=== PATIENT | female | born 1940 | race Caucasian/White ===

== ENCOUNTER 2024-04-26 09:25 | Day surgery (SDC) | payer MEDICARE, SELFPAY ==
[2024-04-20 08:03] VITALS: BMI 25.9
[2024-04-20 08:04] VITALS: BMI 25.9
--- NOTE | 2024-04-22 13:15 | P.CONAN_ITS ---
Documented by User: Ness Bashir NP 04/22/24 13:15 HPI - Anesthesia Eval Consult details Narrative: 83yo F for Right Cataract Extraction IOL Insertion No previous cataract on record PMFSH Past Medical History Medical History HTN (hypertension) Hearing loss Cataract Arthritis Surgical History Surgical History History of parotidectomy Hx of tonsillectomy Hx of appendectomy Social History Social History Are you a primary residential care facility manager to a significant other at home: No Patient Tobacco Use Status: Never used Tobacco Use of substances other than those prescribed or required for medical reasons: No Advance Directives: No Advance Directives Information Provided: Yes Advance Directives on File: No Recently lost weight without trying: No Eating poorly because of decreased appetite: No Patient : No : No Meds Allergies Allergy/AdvReac Type Severity Reaction Status Date / Time ciprofloxacin Allergy Severe Anaphylaxis Verified 04/26/24 10:12 levofloxacin Allergy Severe Anaphylaxis Verified 04/26/24 10:12 Home Medications ?Medication ?Instructions ?Recorded ?Confirmed ?Last Taken ?Type amlodipine 2.5 mg tablet 2.5 mg PO DAILY 04/20/24 04/20/24 04/26/24 History ascorbate calcium-bioflavonoid 1 tab PO DAILY 04/20/24 04/20/24 Unknown History 1,000 mg-200 mg tablet (Janette-C with Bioflavonoids) atorvastatin 40 mg tablet 40 mg PO DAILY 04/20/24 04/20/24 04/26/24 History cholecalciferol (vitamin D3) 250 250 mcg PO DAILY 04/20/24 04/20/24 Unknown History mcg (10,000 unit) tablet clotrimazole-betamethasone 1 1 appl topical DAILY 04/20/24 04/20/24 Unknown History %-0.05 % topical cream coQ10 (ubiquinol) 100 mg capsule 100 mg PO DAILY 04/20/24 04/20/24 Unknown History (CoQmax Ubiquinol) collagen (bovine) 100 % topical ea topical 04/20/24 Unknown History powder in packet estradiol 0.01% (0.1 mg/gram) vaginal 04/20/24 Unknown History vaginal cream glucosamine HCl 1,000 1 tab PO DAILY 04/20/24 04/20/24 Unknown History mg-hyaluronic acid 1.65 mg tablet losartan 100 mg tablet 100 mg PO DAILY 04/20/24 04/26/24 04/25/24 History meloxicam 7.5 mg tablet 7.5 mg PO DAILY 04/20/24 04/20/24 Unknown History lgrfqkxl-kag-jmwwf ac 400 1 tab PO DAILY 04/20/24 04/20/24 Unknown History mcg-calcium carb 500 mg-vit K1 20 mcg tablet (Women's 50 Plus Daily Formula) vitamin D3 1,250 mcg (50,000 1 cap PO DAILY 04/20/24 04/20/24 Unknown History unit)-vitamin K2 200 mcg capsule Exam Height,Weight and Vital Signs: Height 5 ft 3 in Weight 66.224 kg Assessment and Plan Assessment Anesthesia Assessment: Chart Reviewed Documented by User: Lavonne Trejo MD 04/26/24 10:50 PMFSH Past Medical History Medical History HTN (hypertension) Hearing loss Cataract Arthritis Functional capacity: wheelchair bound Surgical History Surgical History History of parotidectomy Hx of tonsillectomy Hx of appendectomy History of Problems with Anesthesia: No Social History Social History Are you a primary residential care facility manager to a significant other at home: No Patient Tobacco Use Status: Never used Tobacco Use of substances other than those prescribed or required for medical reasons: No Advance Directives: No Advance Directives Information Provided: Yes Advance Directives on File: No Recently lost weight without trying: No Eating poorly because of decreased appetite: No Patient : No : No Meds Allergies Allergy/AdvReac Type Severity Reaction Status Date / Time ciprofloxacin Allergy Severe Anaphylaxis Verified 04/26/24 10:12 levofloxacin Allergy Severe Anaphylaxis Verified 04/26/24 10:12 Home Medications ?Medication ?Instructions ?Recorded ?Confirmed ?Last Taken ?Type amlodipine 2.5 mg tablet 2.5 mg PO DAILY 04/20/24 04/20/24 04/26/24 History ascorbate calcium-bioflavonoid 1 tab PO DAILY 04/20/24 04/20/24 Unknown History 1,000 mg-200 mg tablet (Janette-C with Bioflavonoids) atorvastatin 40 mg tablet 40 mg PO DAILY 04/20/24 04/20/24 04/26/24 History cholecalciferol (vitamin D3) 250 250 mcg PO DAILY 04/20/24 04/20/24 Unknown History mcg (10,000 unit) tablet clotrimazole-betamethasone 1 1 appl topical DAILY 04/20/24 04/20/24 Unknown History %-0.05 % topical cream coQ10 (ubiquinol) 100 mg capsule 100 mg PO DAILY 04/20/24 04/20/24 Unknown History (CoQmax Ubiquinol) collagen (bovine) 100 % topical ea topical 04/20/24 Unknown History powder in packet estradiol 0.01% (0.1 mg/gram) vaginal 04/20/24 Unknown History vaginal cream glucosamine HCl 1,000 1 tab PO DAILY 04/20/24 04/20/24 Unknown History mg-hyaluronic acid 1.65 mg tablet losartan 100 mg tablet 100 mg PO DAILY 04/20/24 04/26/24 04/25/24 History meloxicam 7.5 mg tablet 7.5 mg PO DAILY 04/20/24 04/20/24 Unknown History jhbjuvgy-yjj-yapkc ac 400 1 tab PO DAILY 04/20/24 04/20/24 Unknown History mcg-calcium carb 500 mg-vit K1 20 mcg tablet (Women's 50 Plus Daily Formula) vitamin D3 1,250 mcg (50,000 1 cap PO DAILY 04/20/24 04/20/24 Unknown History unit)-vitamin K2 200 mcg capsule Exam Airway Mallampati Class: II TM Dist: >3cm Neck ROM: Full Loose/Missing/Broken Teeth: No Heart: RRR Lungs: CTA Assessment and Plan Assessment Anesthesia Assessment: Anesthesia Plan Discussed Final Anesthetic Review History of Problems with Anesthesia: No NPO: Yes ASA Class: II Final Preanesthetic Review: Meds/Allgs Chart Reviewed, Consent Obtained/Reviewed and Anes Risks/Benef Reviewed Patient Risk: Low Procedure Risk: Low Anesthetic Plan Anesthetic Plan: MAC: Disposition: Standard PACU
--- OUTSIDE RECORDS SUMMARY | 2024-04-26 10:03 | XMS_ITS ---
Author Organization [facility] Address [address] [place] [address] Care Team Providers Care Sql Ssrs Ssis Developer Name Role Phone BESSIE MENDOZA Primary Care Provider Unavail able Rebecca Fowler Unavailable [phone] Allergies Allergen (clinical drug ingredient) Drug/Non Drug Allergy documented on EMR Reaction Allergy Type Onset Date Status ciprofloxacin Cipro Unknown Drug Allergy Act terrie Levaquin Swelling Throat & Face Drug Allergy Active Medicinal quinolone and acting as antibacterial agent (FN) Quinolones Unknown Drug Allergy Active Results Component Value Reference Range Notes Urinalysis Reviewed date:09/26/2023 03:49:02 PM Interpretation: Performing Lab: Notes/Report: NITRITE Neg PH 5.0 PROTEIN Trace S.G 1.015 WBC Trace GLUCOSE Neg KETONES Neg UROBILINOGEN Neg BILIRUBIN Neg BLOOD Trace Urinalysis, Complete-[id number] Reviewed date:09/29/2023 08:40:36 AM Interpretation: Performing Lab:[facility], [address] [place] [address], [place], Phone - [phone], Director - Anna Notes/Report: Specific [place] 1.018 1.005-1.030 pH 5.5 5.0-7.5 Urine-Color Yellow Yellow Appearance Clear Clear WBC Esterase Negative Negative Protein Negative Negative/Trace Glucose Negative Negative Ketones Negative Negative Occult Blood Negative Negative Bilirubin Negative Negative Urobilinogen,Semi-Qn 0.2 0.2-1.0 mg/dL Nitrite, Urine Negative Negative Microscopic Examination Micr oscopic follows if indicated. Microscopic Examination See below: Micr oscopic was indicated and was performed. WBC None seen 0 - 5 /hpf RBC 0-2 0 - 2 /hpf Epithelial Cells (non renal) None seen 0 - 10 /hpf Casts None seen None seen /lpf Bacteria None seen None seen/Few Urine Culture, Routine-[id number] Reviewed date:09/29/2023 09:09:18 AM Interpretation: Performing Lab:[facility], [address] [place] [address], Phone - [phone], Director - Anna Notes/Report: Urine Culture, Routine Final report Result 1 No growth PDF Report Reviewed date:09/29/2023 08:39:20 AM Interpretation: Performing Lab:[facility], [address], [place], Phone - [phone], Director - Anna Notes/Report: REASON FOR VISIT URINARY ISSUE W/ABD PAIN Medications Medication SIG (Take, Route, Frequency, Duration) Notes Start Date End Date Status Collagen Active Ubiquinol Active CoQ10 50 MG as directed Orally Active Chondroitin Sulfate Active amLODIPine Besylate 2.5 MG 1 tablet Oral ly Once a day for 30 day(s) 11/07/2022 Active Clotrimazole-Betamethasone 1-0.05 % 1 application to affected area Externally Twice a day for 14 days 11/07/2022 Active Meloxicam 7.5 MG 1 tablet Orally Once a day for 30 day(s) Active Citracal/Vitamin D 1200 mg 1 tablet Orally Daily Active Losartan Potassium 100 MG 1 tablet Orall y Once a day Active Janette-C 500-550 MG Orally A ctive Vitamin D3 25 MCG (1000 UT) 1 tablet Ora lly Once a day for 30 day(s) Active Atorvastatin Calcium 40 MG 1 tablet Oral ly Once a day Active Glucosamine 1500 Complex Active Social History Alcohol Screen (Audit-C) Question Answer Notes Did you have a drink contain ing alcohol in the past year? Yes How often did you have a dri nk containing alcohol in the past year? 2 to 4 times a month (2 points) How many drinks did you have on a typical day when you were drinking in the past year? 1 or 2 drinks (0 point) Points 2 Tobacco use other than smoking: Question Answer Notes Are you an other tobacco user? No Vital Signs Temperature 97.4 degrees Fahrenheit 09/26/19 24 Blood pressure systolic 134 mm Hg 09/26/19 24 Blood pressure diastolic 78 mm Hg 024 Height 61.75 in 09/26/2023 Weight 142 lbs 09/26/2023 BMI 26.18 kg/m2 09/26/2023 Encounters Encounter Location Date Provider Diagnosis [facility] [address] [place] [address] 09/26/2023 Rebecca Fowler Frequency of micturition R35.0 ; Unspecified abdominal pain R10.9 ; Abdominal distension (gaseous) R14.0 and Acute candidiasis of vulva and vagina B37.31 Assessments Encounter Date Diagnosis (ICD Code) Assessment Notes Treatment Notes Treatment Clinical Notes Section Notes 09/26/2023 Frequency of micturition (ICD-10 - R35.0) OFFICIAL UA AND URINE C/S 09/26/2023 Unspecified abdominal pain (ICD-10 - R10.9) REASSURED PAT OF NORMAL WIND 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 ULTRASOUND OF THE ABDOMEN AND PELVIS WERE ORDERED. IF NORMAL AND PAINS CONTINUE, REFER TO PCP FOR POSSIBLE CT SCAN OF THE ABDOMEN. 09/26/2023 Abdominal distension (gaseous) (ICD-10 - R14.0) PELVIC AND ABDOMINAL SCANS WERE ORDERED. 09/26/2023 Acute candidiasis of vulva and vagina (ICD-10 - B37.31) DISCUSSED FINDINGS AND PROBABLE VULVAR YEAST. CONTINUE APPLYING LOTRISONE CREAM THAT HAD PREVIOUSLY BEEN PRESCRIBED. LOOSE WHITE COTTON UNDERWEAR. Plan Of Treatment Treatment Notes Assessment Notes Frequency of micturition OFFICIAL UA AND URINE C/S Unspecified abdominal pain REASSURED PAT OF NORMAL WIND 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 ULTRASOUND OF THE ABDOMEN AND PELVIS WERE ORDERED. IF NORMAL AND PAINS CONTINUE, REFER TO PCP FOR POSSIBLE CT SCAN OF THE ABDOMEN. Abdominal distension (gaseous) PELVIC AN D ABDOMINAL SCANS WERE ORDERED. Acute candidiasis of vulva and vagina DISCUSSED FINDINGS AND PROBABLE VULVAR YEAST. CONTINUE APPLYING LOTRISONE CREAM THAT HAD PREVIOUSLY BEEN PRESCRIBED. LOOSE WHITE COTTON UNDERWEAR. Pending Test Test Name Order Date Ultrasound : Abdomen 09/26/2023 Next Appt Details Follow Up: prn, Reason: Provider Name:Rebecca Pennington [email or web address], 11/11/2024 09:40:00 AM, [address], [address], [place], [address], Progress Notes * RANULFO ANNEOB:1940 (83 yo F)Acc No.[id number]:09/26/2023 PROGRESS NOTES Patient:?JON ANNEN Appointment Provider:?Rebecca dyson M.D. :1940???Age:83 Y???Sex:Female D ate:09/26/2023 Address:[address] [place], [place] [id number] Pcp:BESSIE MENDOZA Subjective: * Chief Complaints: * ???URINARY ISSUE W/ABD PAIN * HPI: ???New/Follow-up Patient Consult:? PAT IS C/O URINARY FREQUENCY BUT NO DYSURIA OR URGENCY.? SHE HAS ALSO NOTED TWINGES OF PAIN ALONG THE ENTIRE ABDOMEN THAT OCCUR ABOUT 5 TIMES PER DAY OF A WEEKS DURATION.? PAINS LAST A FEW SECONDS.? SHE FEELS BLOATED.? SHE HAS NO BOWEL COMPLAINTS. SHE ALSO C/O VULVAR ITCHING AND HAS STARTED TO USE LOTRISONE CREAM THAT SHE HAD BEEN PREVIOUSLY PRESCRIBED. SHE AND HER WERE AT THE [place] AND [place] RECENTLY AND ADMITS TO WEARING TIGHTER CLOTHING WHILE TRAVELING. * ROS:?general:?no?chest pain.?no?palpitations.?no?headache.?no?cough.?no?shortness of breath.?no?fever.?no?unexplained weight loss.?no?nausea/vomiting.?no?change in bowel movements.?no blood in stool.?genitourinary complaints?yes,?URINARY FREQUENCY.?no?skin complaints.? * Medical History:? 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 * OB History:?Total pregnancies?2.?Total living children?2.?NVD?2.? * Surgical History:?Appendecto my D&C Tonsillectomy Colonoscopy * Hospitalization/Major Diagno stic Procedure:?2 Vaginal Deliveries See Surgical Hx * Family History:?Mother: dece ased 89 yrs, Kidney Failure.?Father: 60 yrs, coronary artery disease.? Maternal Cousin: Lung Cancer, Smoker. * Social History:?Tobacco Use:?Tobacco Use/Smoking?Are you a: nonsmoker.?Tobacco use other than smoking?Are you an other tobacco user??No ???Sexual History:?Sexual History?Had sex in the past 12 months (vaginal, oral, or anal)?: Yes, with: Men only, Use protection?: No, Have you ever had a Sexually transmitted disease?: No.?Details of Sexual History?Are you sexually active??Yes ???Drugs/Alcohol:?Drugs?Have you used drugs other than those for medical reasons in the past 12 months??No ?Alcohol Screen (Audit-C)?Did you have a drink containing alcohol in the past year??Yes ?How often did you have a drink containing alcohol in the past year??2 to 4 times a month (2 points) ?How many drinks did you have on a typical day when you were drinking in the past year??1 or 2 drinks (0 point) ?Points?2 ???Miscellaneous:?Caffeine: yes, frequency:, 1 cup per day of coffee. ?Children: yes. ?Exercise: yes, walking. ?Home smoke detector use: yes. ?Living with: spouse. ?Marital status: . ?Natural support system: yes. ?Occupation: Retired. ?Sexual abuse: no. ?Sexually active: yes, Not Frequently. ?Travel outside of the [place]: yes, [place]. ?Verbal abuse: no. * Medications:?TakingCollagen Ubiquinol CoQ10 50 MG Capsule as directed Orally Chondroitin Sulfate Glucosamine 1500 Complex Vitamin D3 25 MCG (1000 UT) Tablet 1 tablet Orally Once a day Atorvastatin Calcium 40 MG Tablet 1 tablet Orally Once a day Citracal/Vitamin D 1200 mg Tablet 1 tablet Orally Daily Losartan Potassium 100 MG Tablet 1 tablet Orally Once a day Janette-C 500-550 MG Tablet Orally amLODIPine Besylate 2.5 MG Tablet 1 tablet Orally Once a day Clotrimazole-Betamethasone 1- 0.05 % Cream 1 application to affected area Externally Twice a day Meloxicam 7.5 MG Tablet 1 tablet Orally Once a day Taking Collagen Taking Ubiquinol Taking CoQ10 50 MG Capsule as directed Orally Taking Chondroitin Sulfate Taking Glucosamine 1500 Complex Taking Vitamin D3 25 MCG (1000 UT) Tablet 1 tablet Orally Once a day Taking Atorvastatin Calcium 40 MG Tablet 1 tablet Orally Once a day Taking Citracal/Vitamin D 1200 mg Tablet 1 tablet Orally Daily Taking Losartan Potassium 100 MG Tablet 1 tablet Orally Once a day Taking Janette-C 500-550 MG Tablet Orally Taking amLODIPine Besylate 2.5 MG Tablet 1 tablet Orally Once a day Taking Clotrimazole-Betamethasone 1-0.05 % Cream 1 application to affected area Externally Twice a day Taking Meloxicam 7.5 MG Tablet 1 tablet Orally Once a day DiscontinuedYuvafem 10 MCG Tablet 1 tablet Vaginal THRICE A WEEK Lotrisone 1-0.05 % Cream 1 application to affected area Externally Twice a day PRN Clotrimazole-Betamethasone 1-0.05 % Cream 1 application Externally Twice a day Medication List reviewed and reconciled with the patientDiscontinued Yuvafem 10 MCG Tablet 1 tablet Vaginal THRICE A WEEK Discontinued Lotrisone 1-0.05 % Cream 1 application to affected area Externally Twice a day PRN Discontinued Clotrimazole-Betamethasone 1-0.05 % Cream 1 application Externally Twice a day Medication List reviewed and reconciled with the patient * Allergies:?Cipro: AllergyLev aquin: Swelling Throat & Face - AllergyQuinolones: Allergyno[Allergies Verified] Objective: * Vitals:?Ht: 61.75 in, Wt: 14 2 lbs, BMI:26.18Index, BP: 134/78 mm Hg, Temp: 97.4 F. 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 Assessment: * Assessment: 1.?Frequency of micturition - R35.0???2.?Unspecified abdominal pain - R10.9???3.?Abdominal distension (gaseous) - R14.0???4.?Acute candidiasis of vulva and vagina - B37.31??? Plan: * Treatment: ? Value Reference Range ?NITRITE Neg * ?PH 5.0 * ?PROTEIN Trace * ?S.G 1.015 * ?WBC Trace * ?GLUCOSE Neg * ?KETONES Neg * ?UROBILINOGEN Neg * ?BILIRUBIN Neg * ?BLOOD Trace * MABEL Morocho 09/26/2023 02:46:21 PM EDT > U/A and Urine C/S Sent Notes: OFFICIAL UA AND URINE C/S??2.?Unspecified abdominal pain?Imaging: Ultrasound : Abdomen* ABDOMINAL ULTRASOUND COMPLET E. BOOKED AT [facility] 10/15/23 @ 9:15 AM ARRIVE AT 9AM. Notes: REASSURED PAT OF NORMAL WIND 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 ULTRASOUND OF THE ABDOMEN AND PELVIS WERE ORDERED. IF NORMAL AND PAINS CONTINUE, REFER TO PCP FOR POSSIBLE CT SCAN OF THE ABDOMEN.??3.?Abdominal distension (gaseous)?Imaging: Ultrasound : Abdomen* ABDOMINAL ULTRASOUND COMPLET E. BOOKED AT [facility] 10/15/23 @ 9:15 AM ARRIVE AT 9AM. Notes: PELVIC AND ABDOMINAL SCANS WERE ORDERED.??4.?Acute candidiasis of vulva and vagina? Notes: DISCUSSED FINDINGS AND PROBABLE VULVAR YEAST. CONTINUE APPLYING LOTRISONE CREAM THAT HAD PREVIOUSLY BEEN PRESCRIBED. LOOSE WHITE COTTON UNDERWEAR.?? * Procedure Codes:? * Follow Up:?prn * Images: Billing Information: * Visit Code:? * Procedure Codes:? * Sign off status: Completed true * Appointment Provider:?Rebecca Fowler M.D. Date:?09/26/2023 Generated for Miller eddy/Gordon/Angieitting on:?04/26/2024 10:03 AM EST History and Physical Notes * HPI (History of Present Illness) Category Sub-Category Detail Notes Category Not es New/Follow-up Patient Consult PAT IS C/O URINARY FREQUENCY BUT NO DYSURIA OR URGENCY. SHE HAS ALSO NOTED TWINGES OF PAIN ALONG THE ENTIRE ABDOMEN THAT OCCUR ABOUT 5 TIMES PER DAY OF A WEEKS DURATION. PAINS LAST A FEW SECONDS. SHE FEELS BLOATED. SHE HAS NO BOWEL COMPLAINTS. SHE ALSO C/O VULVAR ITCHING AND HAS STARTED TO USE LOTRISONE CREAM THAT SHE HAD BEEN PREVIOUSLY PRESCRIBED. SHE AND HER WERE AT THE [place] RECENTLY AND ADMITS TO WEARING TIGHTER CLOTHING WHILE TRAVELING. Examination Category Sub-Category Detail Notes Category Not es General Examination GENERAL APPEARANCE: in no ac jorge distress, well developed, well nourished ABDOMEN: normal, bowel sounds present, soft, nontender, nondistended WIND TURBINE SHEET METAL WORKER exam CERVIX: No cervical motion tendernes s, discharge or lesions VAGINA: atrophic changes EXTERNAL GENITALIA: atrophic changes UTERUS: normal size, shape a nd consistency, normal mobility, nontender ADNEXA: no masses or tendern ess bilaterally
--- OUTSIDE RECORDS SUMMARY | 2024-04-26 10:03 | XMS_ITS | Clinical Summary ---
Author Organization [facility] Address [address] [place] [address] Care Team Providers Care Guard Entrance Registrar Name Role Phone Susan Saavedra MD Primary Care Provider Unav ailable Allergies Active Allergy Reactions Criticality Noted Date Comments Ciprofloxacin 01/28/2023 Levofloxacin 01/28/2023 Medications Medication Sig Dispensed Refills Start Date End Date Status clotrimazole-betameth asone (LOTRISONE) cream 0 11/07/2022 Active Qbovsmi-Vsoardgoqo-Kr tamin D (CITRACAL +D3 PO) Take by mouth daily. 0 Active Bioflavonoid Products (NORM C PO) Take 500 mg by mouth daily. 0 Active Multiple Vitamins-Minerals (ONE-A-DAY WOMENS PO) Take by mouth daily. 0 Active COLLAGEN PO Take by mouth daily. 3 tabs 0 Active Cholecalciferol (VITAMIN D3 PO) Take by mouth daily. 0 Active Ubiquinol 50 MG CAPS Take by mouth daily. 0 Active Glucosamine-Chondroit in 3139-7712 MG/30ML LIQD Take by mouth daily. 2 tab 0 Active amLODIPine (NORVASC) tablet 2.5 mg TAKE ONE TABLET BY MOUTH DAILY 90 tablet 0 01/08/2024 Active losartan (COZAAR) 100 MG tablet TAKE ONE TABLET BY MOUTH ONCE DAILY 90 tablet 0 01/08/2024 Active atorvastatin (LIPITOR) tablet 40 mg TAKE ONE TABLET BY MOUTH ONCE DAILY 90 tablet 0 01/08/2024 Active meloxicam (MOBIC) 7.5 MG tablet Take 1 tablet (7.5 mg total) by mouth daily as needed. 30 tablet 0 01/12/2024 Active Active Problems Problem Noted Date Diagnosed Date White coat syndrome with diagnosis of hypertensi on 01/28/2023 Mixed hyperlipidemia 01/28/2023 Primary osteoarthritis of left knee 01/28/2023 Primary osteoarthritis of both feet 01/28/2023 Family History Medical History Relation Name Comments Cancer Maternal Grandfather Kidney disease Mother Relation Name Status Comments Father Maternal Grandfather Maternal Grandmother Mother Paternal Grandfather Other Paternal Grandmother Social History Tobacco Use Types Packs/Day Years Used Date Smoking Tobacco: Never Smokeless Tobacco: Never Tobacco Cessation:Counseling Given: Not Answered Alcohol Use Standard Drinks/Week Comments Not Asked 0 (1 standard drink = 0.6 oz pur e alcohol) Socially Sex and Gender Information Value Date Recorded Sex Assigned at Not on file Gender Identity Not on file Sexual Orientation Not on file Job Start Date Occupation Industry Not on file Not on file Not on file Last Filed Vital Signs Vital Sign Reading Time Taken Comments Blood Pressure 134/63 09/02/2023 1:05 PM EDT Pulse 62 09/02/2023 1:05 PM EDT Temperature 36.3 ??C (97.3 ??F) 09/02/2023 1:05 PM ED T Respiratory Rate - - Oxygen Saturation 97% 09/02/2023 1:05 PM EDT Inhaled Oxygen Concentration - - Weight 65.3 kg (144 lb) 06/05/2023 10:14 AM EDT Height 157.5 cm (5' 2 ) 06/05/2023 10:14 AM EDT Body Mass Index 26.34 06/05/2023 10:14 AM EDT Plan of Treatment Health Maintenance Due Date Last Done Comments COVID-19 Vaccine (#1) 01/15/1941 DTap / Tdap / Td (1 - Tdap) 1961 Shingrix-Zoster Vaccine (1 of 2) 1992 Osteoporosis Screening (DEXA Scan) 07/16/2007 Pneumococcal Vaccine (1 of 1 - PCV) 07/16/2007 RSV Adult > 60+ Yrs or (1 - 1-dose 75+ series) 2017 Depression Screening 03/03/2024 03/03/2023, 03/03/2023, 03/03/2023, Additional history exists Fall Risk Assessment 03/03/2024 03/03/2023, 03/03/20 23 Preventative Health Evaluation 03/03/2024 03/03/2023, 03/03/2023, 03/03/2023 Hepatitis B Vaccines Aged Out No long er eligible based on patient's age to complete this topic Influenza Vaccine Discontinued RSV Ped < 20 months Aged Out No longe r eligible based on patient's age to complete this topic Care Teams Guard Entrance Registrar Relationship Specialty Start Date End Date Susan Saavedra MD PCP - General Internal Medicine 03/03/23
--- OUTSIDE RECORDS SUMMARY | 2024-04-26 10:03 | XMS_ITS ---
Author Organization [employer] [facility] Address [address] [place] [address] Care Team Providers Care Life Science Teacher Name Role Phone BESSIE MENDOZA Primary Care Provider Unavail able Rebecca Fowler Unavailable [phone] Allergies Allergen (clinical drug ingredient) Drug/Non Drug Allergy documented on EMR Reaction Allergy Type Onset Date Status ciprofloxacin Cipro Unknown Drug Allergy Act terrie Levaquin Swelling Throat & Face Drug Allergy Active Medicinal quinolone and acting as antibacterial agent (FN) Quinolones Unknown Drug Allergy Active REASON FOR VISIT HR MEDICARE PE, Annual RETAIL ANALYTICS MANAGER Physical 60-85+ Medications Medication SIG (Take, Route, Frequency, Duration) Notes Start Date End Date Status Glucosamine 1500 Complex Active Collagen Active Ubiquinol Active CoQ10 50 MG as directed Orally Active Chondroitin Sulfate Active Hair Vitamins Active One A Day Women 50 Plus Active Estradiol 0.1 MG/GM 1 GRAM VULVA Two lincoln es a Week for 90 days 11/11/2023 Active Clotrimazole-Betamethasone 1-0.05 % 1 application to affected area Externally Twice a day for 14 days 11/07/2022 Active Meloxicam 7.5 MG 1 tablet Orally Once a day for 30 day(s) Active Atorvastatin Calcium 40 MG 1 tablet Oral ly Once a day Active Citracal/Vitamin D 1200 mg 1 tablet Orally Daily Active Losartan Potassium 100 MG 1 tablet Orall y Once a day Active Janette-C 500-550 MG Orally A ctive amLODIPine Besylate 2.5 MG 1 tablet Oral ly Once a day for 30 day(s) 11/07/2022 Active Vitamin D3 25 MCG (1000 UT) 1 tablet Ora lly Once a day for 30 day(s) Active Social History Tobacco Use: Social History Observation Description Date Details (start date - stop date) Never Smoker NA - NA Tobacco use other than smoking: Question Answer Notes Are you an other tobacco user? No AUDIT-C (Standard) Question Answer Notes Did you have a drink contain ing alcohol in the past year? Yes How often did you have six o r more drinks on one occasion in the past year? Never (0 point) How many drinks did you have on a typical day when you were drinking in the past year? 1 or 2 drinks (0 point) How often did you have a dri nk containing alcohol in the past year? 2 to 4 times a month (2 points) Points 2 Interpretation Negative Tobacco Control (Standard) Question Answer Notes Tobacco use: Nonsmoker Problems Problem Type SNOMED Code ICD Code Onset Dates Problem Status W/U Status Risk Notes Problem Atrophy of vulva (010492006) Atrophy of vulva (N90.5) Active confirmed Vital Signs Temperature 97.8 degrees Fahrenheit 11/11/19 24 Blood pressure systolic 134 mm Hg 11/11/19 24 Blood pressure diastolic 80 mm Hg 024 Height 61.75 in 11/11/2023 Weight 144 lbs 11/11/2023 BMI 26.55 kg/m2 11/11/2023 Encounters Encounter Location Date Provider Diagnosis [address] [id number] 11/11/2023 Rebecca Fowler Encounter for screening mammogram for malignant neoplasm of breast Z12.31 ; Atrophy of vulva N90.5 ; Postmenopausal atrophic vaginitis N95.2 ; Age-related osteoporosis without current pathological fracture M81.0 ; Dense breasts, unspecified R92.30 and Encounter for gynecological examination (general) (routine) without abnormal findings Z01.419 Assessments Encounter Date Diagnosis (ICD Code) Assessment Notes Treatment Notes Treatment Clinical Notes Section Notes 11/11/2023 Encounter for screening mammogram for malignant neoplasm of breast (ICD-10 - Z12.31) REGULAR MAMMOGRAMS AND SBE'S WERE RECOMMENDED. 11/11/2023 Atrophy of vulva (ICD-10 - N90.5) DISCUSSED FINDINGS, DX AND TX OPTIONS. D/C LOTRISONE! PAT WAS ADVISED NOT TO APPLY THIS FOR LONG PERIODS OF TIME. SHE MISUNDERSTOOD MY INSTRUCTIONS. RX AND INSTRUCTIONS FOR ESTRADIOL CREAM WERE GIVEN. 11/11/2023 Postmenopausal atrophic vaginitis (ICD-10 - N95.2) DISCUSSED VAGINAL ATROPHY. ADVISED PAT TO APPLY ESTRADIOL CREAM INTRAVAGINALL TWICE WEEKLY. 11/11/2023 Age-related osteoporosis without current pathological fracture (ICD-10 - M81.0) DISCUSSED OSTEOPOROSIS AND ITS IMPACT ON HER HEALTH. ADEQUATE CALCIUM AND VIT D. WEIGHT BEARING EXERCISES, OSTEO PRECAUTIONS. REPEAT BMD THIS YEAR. 11/11/2023 Dense breasts, unspecified (ICD-10 - R92.30) DISCUSSED DENSE BREASTS ON MAMMOGRAM AND ITS IMPLICATIONS. 3D MAMMOGRAMS WERE RECOMMENDED. 11/11/2023 Encounter for gynecological examination (general) (routine) without abnormal findings (ICD-10 - Z01.419) NO MORE PAP TESTS. Plan Of Treatment Medication Medication Name Sig Start Date Stop Date Notes Estradiol 0.1 MG/GM 1 GRAM VULVA Two lincoln es a Week for 90 days 11/11/2023 Treatment Notes Assessment Notes Encounter for screening mamm ogram for malignant neoplasm of breast REGULAR MAMMOGRAMS AND SBE'S WERE RECOMMENDED. Atrophy of vulva DISCUSSED FINDINGS, DX AND TX OPTIONS. D/C LOTRISONE! PAT WAS ADVISED NOT TO APPLY THIS FOR LONG PERIODS OF TIME. SHE MISUNDERSTOOD MY INSTRUCTIONS. RX AND INSTRUCTIONS FOR ESTRADIOL CREAM WERE GIVEN. Postmenopausal atrophic vaginitis DISCUSSED VAGINAL ATROPHY. ADVISED PAT TO APPLY ESTRADIOL CREAM INTRAVAGINALL TWICE WEEKLY. Age-related osteoporosis wit hout current pathological fracture DISCUSSED OSTEOPOROSIS AND ITS IMPACT ON HER HEALTH. ADEQUATE CALCIUM AND VIT D. WEIGHT BEARING EXERCISES, OSTEO PRECAUTIONS. REPEAT BMD THIS YEAR. Dense breasts, unspecified DISCUSSED DENSE BREASTS ON MAMMOGRAM AND ITS IMPLICATIONS. 3D MAMMOGRAMS WERE RECOMMENDED. Encounter for gynecological examination (general) (routine) without abnormal findings NO MORE PAP TESTS. Pending Test Test Name Order Date MAMMOGRAM, SCREENING 11/11/2023 BONE DENSITY 11/11/2023 MM Digital Mammo Screening 11/11/2023 Next Appt Details Follow Up: 1 Year, Reason: Provider Name:Rebecca dyson, 11/11/2024 09:40:00 AM, [address], [address], [place], [address], Progress Notes * PAYTON ANNE:1940 (83 yo F)Acc No.[id number]:11/11/2023 PROGRESS NOTES Patient:CRISELDA APARICIO Appointment Provider:?Rebecca dyson M.D. :1940???Age:83 Y???Sex:Female D ate:11/11/2023 Address:[address] [place] [address] Pcp:BESSIE MENDOZA Subjective: * Chief Complaints: * ???HR MEDICARE PEAnnual RETAIL ANALYTICS MANAGER Physical 60-85+ * HPI: ???New/Follow-up Patient Consult:? FLACO ENTERED MENOPAUSE IN 1988.? 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 SHE HAS HAD VULVAR ITCHING OFF AND ON FOR SEVERAL MONTHS.? SHE WAS TREATED WITH LOTRISONE CREAM AND ADVISED TO APPLY TWICE DAILY ONLY FOR A WEEK OR TWO AND THEN NEEDED.? APPARENTLY, FLACO HAS BEEN APPLYING THIS ALMOST DAILY.? SHE CONTINUES TO HAVE OFF AND ON ITCHING. FLACO C/O LOWER ABDOMINAL PAINS AND URINARY SYMPTOMS IN SEPTEMBER AND WAS NOTED TO HAVE MILD LEFT HYDRONEPHROSIS ON RETROPERITONEAL ULTRASOUND.? SHE WAS REFERRED TO A UROLOGIST AND SHE IS SCHEDULED FOR A CT SCAN THIS MONTH.? PAINS HAVE RESOLVED. HER LAST MAMMOGRAM DONE IN DEC 2021 SHOWED DENSE BREASTS AND LEFT MAMMOGRAM DONE IN JUNE 2022 SHOWED NORMAL FINDINGS.? HER LIFETIME BREAST CA RISK IS 3.4%. HER? LAST PAP TEST IN 2013 WAS NEGATIVE AND HPV NEGATIVE. HER LAST BMD IN 2020 SHOWED IMPROVEMENT FROM A T-SCORE OF -2.5 AT THE FEMORAL NECK IN 2018 TO -2.2 IN 2020.? SHE HAS NO HX OF FRACTURES. SHE HAD A COLONOSCOPY DONE IN 2014. MODERNA X 2. ???Annual:? Patient presents for annual exam, ages 60-85, postmenopausal. ?General Health Maintenance:?Current breast complaints:?no breast pain, mass, discharge, or skin changes ?Urinary problems:?patient reports no urinary health problems or bowel health problems ?Calcium intake:?takes adequate calcium via diet and supplementation ?Significant RETAIL ANALYTICS MANAGER problems:?no significant biofuels research scientist symptoms or problems * ROS:?general:?no?chest pain.?no?palpitations.?no?headache.?no?cough.?no?shortness of breath.?no?fever.?no?unexplained weight loss.?no?nausea/vomiting.?no?change in bowel movements.?no blood in stool.?no?genitourinary complaints.?no?skin complaints.? * Medical History:? 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 * OB History:?Total pregnancies?2.?Total living children?2.?NVD?2.? * Surgical History:?Appendecto my D&C Tonsillectomy Colonoscopy * Hospitalization/Major Diagno stic Procedure:?2 Vaginal Deliveries See Surgical Hx * Family History:?Mother: dece ased 89 yrs, Kidney Failure.?Father: 60 yrs, coronary artery disease.? Maternal Cousin: Lung Cancer, Smoker. * Social History:?Tobacco Use:?Tobacco use other than smoking?Are you an other tobacco user??No ?Tobacco Control (Standard)?Tobacco use:?Nonsmoker ???Sexual History:?Sexual History?Had sex in the past 12 months (vaginal, oral, or anal)?: Yes, with: Men only, Use protection?: No, Have you ever had a Sexually transmitted disease?: No.?Details of Sexual History?Are you sexually active??Yes ???Drugs/Alcohol:?Drugs?Have you used drugs other than those for medical reasons in the past 12 months??No ???Miscellaneous:?Caffeine: yes, frequency:, 1 cup per day of coffee. ?Children: yes. ?Exercise: yes, walking. ?Home smoke detector use: yes. ?Living with: spouse. ?Marital status: . ?Natural support system: yes. ?Occupation: Retired. ?Sexual abuse: no. ?Sexually active: yes, Not Frequently. ?Travel outside of the [place]: yes, [place]. ?Verbal abuse: no. ???Drug/Alcohol:?AUDIT-C (Standard)?Did you have a drink containing alcohol in the past year??Yes ?How often did you have six or more drinks on one occasion in the past year??Never (0 point) ?How many drinks did you have on a typical day when you were drinking in the past year??1 or 2 drinks (0 point) ?How often did you have a drink containing alcohol in the past year??2 to 4 times a month (2 points) ?Points?2 ?Interpretation?Negative * Medications:?TakingHair Debi mins One A Day Women 50 Plus Collagen Ubiquinol CoQ10 50 MG Capsule as directed [...] 1 tablet Orally Once a day Clotrimazole-Betamethasone 1-0.05 % Cream 1 application to affected area Externally Twice a day Meloxicam 7.5 MG Tablet 1 tablet Orally Once a day Medication List reviewed and reconciled with the patientTaking Hair Vitamins Taking One A Day Women 50 Plus Taking Collagen Taking Ubiquinol Taking CoQ10 50 [...] Tablet 1 tablet Orally Once a day Medication List reviewed and reconciled with the patient * Allergies:?Cipro: AllergyLev aquin: Swelling Throat & Face - AllergyQuinolones: Allergyno[Allergies Verified] Objective: * Vitals:?Ht: 61.75 in, Wt: 14 4 lbs, BMI:26.55Index, BP: 134/80 mm Hg, Temp: 97.8 F. * Examination: ???General Exam: ?CONSTITUTIONAL:?NECK/THYROID:?RESPIRATORY:?Auscultation: clear to auscultation bilaterally, Respiratory Effort: normal.?CARDIOVASCULAR:?Auscultation: regular rate and rhythm.?BREAST, Right:?BREAST, Left:?GASTROINTESTINAL:?MUSCULOSKELETAL:?SKIN:?NEURO/PSYCH:?Genitourinary: ?EXTERNAL GENITALIA:?VAGINA:?BLADDER:?URETHRA:?CERVIX:?UTERUS:?ADNEXA:?ANUS AND PERINEUM:? Assessment: * Assessment: 1.?Encounter for screening m ammogram for malignant neoplasm of breast - Z12.31???2.?Atrophy of vulva - N90.5???3.?Postmenopausal atrophic vaginitis - N95.2???4.?Age-related osteoporosis without current pathological fracture - M81.0 ??5.?Dense breasts, unspecified - R92.30???6.?Encounter for gynecological examination (general) (routine) without abnormal findings - Z01.419 (Primary)??? Plan: * Treatment: 2.?Encounter for screening m ammogram for malignant neoplasm of breast?Imaging: MM Digital Mammo Screening Notes: REGULAR MAMMOGRAMS AND SBE'S WERE RECOMMENDED.?? 3.?Atrophy of vulva? Start Estradiol Cream, 0.1 MG/GM, 1 GRAM, VULVA, Two times a Week, 90 days, 42.5 Gram, Refills 3.?? Notes: DISCUSSED FINDINGS, DX AND TX OPTIONS. D/C LOTRISONE! PAT WAS ADVISED NOT TO APPLY THIS FOR LONG PERIODS OF TIME. SHE MISUNDERSTOOD MY INSTRUCTIONS. RX AND INSTRUCTIONS FOR ESTRADIOL CREAM WERE GIVEN.?? 4.?Postmenopausal atrophic v aginitis? Notes: DISCUSSED VAGINAL ATROPHY. ADVISED PAT TO APPLY ESTRADIOL CREAM INTRAVAGINALL TWICE WEEKLY.?? 5.?Age-related osteoporosis without current pathological fracture? Notes: DISCUSSED OSTEOPOROSIS AND ITS IMPACT ON HER HEALTH. ADEQUATE CALCIUM AND VIT D. WEIGHT BEARING EXERCISES, OSTEO PRECAUTIONS. REPEAT BMD THIS YEAR.?? 6.?Dense breasts, unspecifie d? Notes: DISCUSSED DENSE BREASTS ON MAMMOGRAM AND ITS IMPLICATIONS. 3D MAMMOGRAMS WERE RECOMMENDED.?? * Imaging:? * ?Imaging: BONE DENSITY ?Imaging: MAMMOGRAM, SCREENING* * Procedure Codes:? * Preventive Medicine:? ??YOUR PREVENTIVE WELLNESS PLAN:?Osteoporosis prevention?Calcium, D, strength training.?Breast Cancer Screening (Mammogram):?annually.?Cervical Cancer Screening (Pap Smear):?q 3 years with HPV screen.?Colorectal Cancer Screening:?q 10 years.? * Follow Up:?1 Year * Images: Billing Information: * Visit Code:? 32930 Preventive Care Est Pt. Age 65 and over. * Procedure Codes:? * Sign off status: Completed true * Appointment Provider:?Rebecca Fowler M.D. Date:?11/11/2023 Generated for Miller eddy/Gordon/Angieitting on:?04/26/2024 10:03 AM EST History and Physical Notes * HPI (History of Present Illness) Category Sub-Category Detail Notes Category Not es New/Follow-up Patient Consult FLACO ENTERED MENOPAUSE IN 1988. 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 SHE HAS HAD VULVAR ITCHING OFF AND ON FOR SEVERAL MONTHS. SHE WAS TREATED WITH LOTRISONE CREAM AND ADVISED TO APPLY TWICE DAILY ONLY FOR A WEEK OR TWO AND THEN NEEDED. APPARENTLY, FLACO HAS BEEN APPLYING THIS ALMOST DAILY. SHE CONTINUES TO HAVE OFF AND ON ITCHING. PAT C/O LOWER ABDOMINAL PAINS AND URINARY SYMPTOMS IN SEPTEMBER AND WAS NOTED TO HAVE MILD LEFT HYDRONEPHROSIS ON RETROPERITONEAL ULTRASOUND. SHE WAS REFERRED TO A UROLOGIST AND SHE IS SCHEDULED FOR A CT SCAN THIS MONTH. PAINS HAVE RESOLVED. HER LAST MAMMOGRAM DONE IN DEC 2021 SHOWED DENSE BREASTS AND LEFT MAMMOGRAM DONE IN JUNE 2022 SHOWED NORMAL FINDINGS. HER LIFETIME BREAST CA RISK IS 3.4%. HER LAST PAP TEST IN 2013 WAS NEGATIVE AND HPV NEGATIVE. HER LAST BMD IN 2020 SHOWED IMPROVEMENT FROM A T-SCORE OF -2.5 AT THE FEMORAL NECK IN 2018 TO -2.2 IN 2021. SHE HAS NO HX OF FRACTURES. SHE HAD A COLONOSCOPY DONE IN 2015. MODERNA X 2. Annual General Health Maintenance: Current breast complaints:: no breast pain, mass, discharge, or skin changes Urinary problems:: patient r yusef no urinary health problems or bowel health problems Calcium intake:: takes adequ ate calcium via diet and supplementation Significant RETAIL ANALYTICS MANAGER problems:: n o significant biofuels research scientist symptoms or problems Examination Category Sub-Category Detail Notes Category Not es General Exam CONSTITUTIONAL: General Appearan ce:: alert, in no acute distress, normal, well nourished NECK/THYROID: Thyroid:: normal size and shape Inspection/Palpation:: normal RESPIRATORY: Auscultation: clear to auscultation bilaterally, Respiratory Effort: normal CARDIOVASCULAR: Auscultation: regula r rate and rhythm GASTROINTESTINAL: Hernias:: no hernias present, no inguinal adenopathy Liver and Spleen:: normal Abdomen:: no masses, nontender, nondiste nded MUSCULOSKELETAL: Inspection/Palpation:: no clubb ing, cyanosis, or edema SKIN: Skin:: normal NEURO/PSYCH: Mood/Affect:: normal Orientation:: time , place, person BREAST, Right: Inspection/Palpation :: no discharge, no masses present, no nipple retraction, no skin changes, no skin dimpling, no tenderness, no lymphadenopathy, no axillary mass, no axillary tenderness BREAST, Left: Inspection/Palpation :: no discharge, no masses present, no nipple retraction, no skin changes, no skin dimpling, no tenderness, no lymphadenopathy, no axillary mass, no axillary tenderness Genitourinary EXTERNAL GENITALIA: External Genitalia:: MARKEDLY ERYTHEMATOUS LABIA MINORA, MAJORA, FOURCHETTE WITH ATROPHY VAGINA: Vagina:: atrophic vaginal tissue , minimal moisture BLADDER: Bladder:: no mass, nontender URETHRA: Urethra:: no erythema or lesions present CERVIX: Cervix:: no lesions, nontender UTERUS: Uterus:: nontender, normal conto ur, normal mobility, normal size ADNEXA: Adnexa:: no masses, no tendernes s ANUS AND PERINEUM: Anus/Perineum:: visually norm al
--- OUTSIDE RECORDS SUMMARY | 2024-04-26 10:03 | XMS_ITS | Encounter Summary ---
Author Organization [facility] Address [address] [place] [address] Care Team Providers Care Analytics Associate Name Role Phone Susan Saavedra MD Primary Care Provider [phone] Reason for Visit * Reason Comments Pre-op Exam Encounter Details Date Type Department Care Team (Late st Contact Info) Description 04/12/2024 10:00 AM EST Consult Internal Medicine - [place] [address] [place] [id number] Magdalena Ramirez MD [address] [place], [place] [id number] Preoperative clearance (Primary Dx); White coat syndrome with diagnosis of hypertension; Mixed hyperlipidemia Social History Tobacco Use Types Packs/Day Years Used Date Smoking Tobacco: Never Smokeless Tobacco: Never Alcohol Use Standard Drinks/Week Comments Not Asked 0 (1 standard drink = 0.6 oz pur e alcohol) Comments Unknown Sex and Gender Information Value Date Recorded Sex Assigned at Not on file Legal Sex Female 8:21 PM EST Gender Identity Not on file Sexual Orientation Not on file documented as of this encounter Last Filed Vital Signs Vital Sign Reading Time Taken Comments Blood Pressure 133/63 04/12/2024 9:45 AM EST Pulse 87 04/12/2024 9:45 AM EST Temperature 36.4 ??C (97.5 ??F) 04/12/2024 9:45 AM ES T Respiratory Rate - - Oxygen Saturation 97% 04/12/2024 9:45 AM EST Inhaled Oxygen Concentration - - Weight 66.2 kg (146 lb) 04/12/2024 9:45 AM EST Height 160 cm (5' 3 ) 04/12/2024 9:45 AM EST Body Mass Index 25.86 04/12/2024 9:45 AM EST documented in this encounter Ordered Prescriptions Prescription Sig Dispense Quantity Refills Last Filled Start Date End Date atorvastatin (LIPITOR) 40 mg tablet Take 1 tablet (40 mg total) by mouth 1 (one) time each day. 90 each 04/12/2024 amLODIPine (NORVASC) 2.5 mg tablet Take 1 tablet (2.5 mg total) by mouth 1 (one) time each day. 90 each 04/12/2024 documented in this encounter Progress Notes * Magdalena Ramirez MD - 04/12/2024 10:13 AM ESTAssociated Problem(s): Mixed hyperlipidemia She is currently on atorvastatin. A prescription refill for atorvastatin has been provided. * Magdalena Ramirez MD - 04/12/2024 10:13 AM ESTAssociated Problem(s): White coat syndrome with diagnosis of hypertension Her blood pressure is well-controlled on her current regimen of amlodipine 2.5 mg and losartan. A prescription refill for amlodipine 2.5 mg has been provided. * Magdalena Ramirez MD - 04/12/2024 10:13 AM ESTAssociated Problem(s): Preoperative clearance 83 year old with past medical history of HTN, HLD, prediabetes who presents for preoperative clearance for cataract surgery. Vital signs and physical exam wnl Reviewed medications Per surgeon's office staff who scheduled appointment, patient does not require EKG or preoperative labs. Our office staff also reached out to surgeon's office but closed today. She is medically optimized for low-risk procedure. * Magdalena Ramirez MD - 04/12/2024 10:00 AM EST Images from the original note were not included. [address] [place] [address] [address] [place] [address] Nani Singh 1940 83 y.o. Date: 04/12/2024 Chief Complaint: Chief Complaint Patient presents with Pre-op Exam I have obtained verbal consent from Nani Singh prior to the recording. I have advised Nani Singh that she may refuse a recording and required the recording to be turned off at any time. SUBJECTIVE: History of Present Illness The patient is an 83-year-old female with past medical history of HTN, HLD, prediabetes who presents for preoperative clearance for cataract surgery. Cataract Surgery - Scheduled to undergo cataract surgery on 04/26/2024, with the subsequent eye procedure planned for 2 to 3 weeks later. - Surgeries will be performed by Dr. Dyer in [place]. 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 Medical History - No history of pulmonary diseases such as asthma or COPD. - No cardiac conditions. Surgical History - Parotid gland? removal approximately 25 years ago, performed under general anesthesia without anycomplications. - Appendectomy at the age of 5. - Tonsillectomy around the age of 9. Medications - Currently on amlodipine 2.5 mg and losartan for hypertension management. - Only 4 tablets of amlodipine left and needs a refill. - Taking atorvastatin and requires a refill. - Takes a daily multivitamin supplement formulated for women over 50. Supplemental information: She has an upcoming appointment in May 2024. CURRENT MEDICATIONS: Current Outpatient Medications Medication Sig Dispense Refill amLODIPine (NORVASC) 2.5 mg tablet Take 1 tablet (2.5 mg total) by mouth 1 (one) time each day. 90 each 1 ascorbate calcium-bioflavonoid (Janette-C with Bioflavonoids) 1,000-200 mg tablet Take 500 mg by mouth. atorvastatin (LIPITOR) 40 mg tablet Take 1 tablet (40 mg total) by mouth 1 (one) time each day. 90 each 1 cholecalciferol, vitamin D3, (cholecalciferol, vit D3,,bulk,) 100,000 unit/gram powder Take by mouth 1 (one) time each day. clotrimazole-betamethasone (LOTRISONE) 1-0.05 % cream collagen, bovine, 100 % powder Take by mouth. COQMAX UBIQUINOL ORAL Take by mouth 1 (one) time each day. estradioL (ESTRACE) 0.01 % (0.1 mg/gram) vaginal cream lhkcswkwjze-U4-uoqsrmitae acid 1,000 mg- 25 mcg-1.65 mg tablet Take by mouth. losartan (COZAAR) 100 mg tablet Take 1 tablet (100 mg total) by mouth 1 (one) time each day. meloxicam (MOBIC) 7.5 mg tablet Take 1 tablet (7.5 mg total) by mouth. vitamin D3-vitamin K2 1,250-200 mcg capsule Take by mouth 1 (one) time each day. multivit-minerals/folic acid (ONE-A-DAY WOMEN'S 50 PLUS ORAL) Take by mouth. (Patient not taking: Reported on 04/12/2024) No current facility-administered medications for this visit. ALLERGIES: Allergies Allergen Reactions Ciprofloxacin Levofloxacin PAST MEDICAL HISTORY: Past Medical History: Diagnosis Date Arthritis DX:Arthritis Cataract DX:Cataract HL (hearing loss) DX:HL (hearing loss) Hypertension DX:Hypertension PAST SURGICAL HISTORY: Past Surgical History: Procedure Laterality Date APPENDECTOMY PROCEDURE:APPENDECTOMY TONSILLECTOMY PROCEDURE:TONSILLECTOMY FAMILY HISTORY: Family History Problem Relation Name Age of Onset Kidney disease Mother Cancer Maternal Grandfather SOCIAL HISTORY: Social History Tobacco Use Smoking status: Never Smokeless tobacco: Never Substance Use Topics Drug use: Never ROS: Review of Systems Constitutional: Negative for chills and fever. HENT: Negative for congestion. Respiratory: Negative for chest tightness and shortness of breath. Cardiovascular: Negative for chest pain and palpitations. Gastrointestinal: Negative for abdominal pain, constipation, diarrhea, nausea and vomiting. Genitourinary: Negative for dysuria. Neurological: Negative for dizziness, seizures, light-headedness and headaches. OBJECTIVE: Vital Signs Visit Vitals BP 133/63 (BP Location: Left arm, Patient Position: Sitting, BP Cuff Size: Adult) Pulse 87 Temp 36.4 ??C (97.5 ??F) (Temporal) Ht 1.6 m (63 ) Wt 66.2 kg (146 lb) SpO2 97% BMI 25.86 kg/m?? Smoking Status Never BSA 1.69 m?? PHYSICAL EXAM: Physical Exam Constitutional: Appearance: Normal appearance. HENT: Mouth/Throat: Pharynx: No oropharyngeal exudate or posterior oropharyngeal erythema. Eyes: Pupils: Pupils are equal, round, and reactive to light. Cardiovascular: Rate and Rhythm: Normal rate and regular rhythm. Pulses: Normal pulses. Heart sounds: Normal heart sounds. Pulmonary: Effort: Pulmonary effort is normal. Breath sounds: Normal breath sounds. Abdominal: General: There is no distension. Tenderness: There is no abdominal tenderness. Musculoskeletal: Right lower leg: No edema. Left lower leg: No edema. Neurological: Mental Status: She is alert. ASSESSMENT/PLAN: Preoperative clearance 83 year old with past medical history of HTN, HLD, prediabetes who presents for preoperative clearance for cataract surgery. Vital signs and physical exam wnl Reviewed medications Per surgeon's office staff who scheduled appointment, patient does not require EKG or preoperative labs. Our office staff also reached out to surgeon's office but closed today. She is medically optimized for low-risk procedure. White coat syndrome with diagnosis of hypertension Her blood pressure is well-controlled on her current regimen of amlodipine 2.5 mg and losartan. A prescription refill for amlodipine 2.5 mg has been provided. Mixed hyperlipidemia She is currently on atorvastatin. A prescription refill for atorvastatin has been provided. Magdalena Ramirez MD [address] [place] [address], [address] [place] [id number] documented in this encounter Plan of Treatment Upcoming Encounters Date Type Department Care Team (Late st Contact Info) Description 06/02/2024 10:30 AM EDT Office Visit Internal Medicine - [address] [place] [phone] Susan Saavedra MD [address] [place] [address] [place] [address] documented as of this encounter Visit Diagnoses Diagnosis Preoperative clearance- Primary Unspecified pre-operative examination White coat syndrome with diagnosis of hypertension Mixed hyperlipidemia documented in this encounter Discontinued Medications Medication Sig Discontinue Reason Start Date End Da te amLODIPine (NORVASC) 2.5 mg tablet Take 1 tablet (2.5 mg total) by mouth 1 (one) time each day. Reorder 04/10/2023 04/12/2024 atorvastatin (LIPITOR) 40 mg tablet Take 1 tablet (40 mg total) by mouth 1 (one) time each day. Reorder 10/31/2022 04/12/2024 documented as of this encounter Additional Health Concerns Assessment Noted Time PHQ-9 Depression Total Score: 0 03/04/20 24 1:02 PM EST A fall risk assessment has been complete d for the patient 03/04/2024 1:01 PM EST documented as of this encounter Care Teams Analytics Associate Relationship Specialty Start Date End Date Susan Saavedra MD [address] [address] PCP - General 03/03/23 documented as of this encounter
--- OUTSIDE RECORDS SUMMARY | 2024-04-26 10:04 | XMS_ITS ---
Author Organization [facility] Address [address] [facility] [address] [place] [address] Care Team Providers Care Chha Name Role Phone BESSIE MENDOZA Primary Care Provider Rebecca Heaton Unavailable [phone] REASON FOR VISIT RX QUESTION Encounters Encounter Location Date Provider Diagnosis [facility] [address] [place] [address] 11/19/2023 Rebecca Fowler Plan Of Treatment Next Appt Details Provider Name:Rebecca dyson, 11/11/2024 09:40:00 AM, [address], [facility] [address], [place], [address], Progress Notes * RANULFO ANNEOB:1940 (83 yo F)Acc No.[id number]:11/19/2023 Patient:?CRISELDA ANNE :1940???Age:83 Y???Sex:Female Address:[address] [place] [address], [address] * true * Date:? Generated for Printi nunu/Gordon/eTransmitting on:?04/26/2024 10:03 AM EST
--- OUTSIDE RECORDS SUMMARY | 2024-04-26 10:04 | XMS_ITS | Patient Health Record ---
Author Organization [facility] Address [address] [facility] [address] [place] [address] Care Team Providers Care Textile Coating Machine Operator Name Role Phone BESSIE MENDOZA Primary Care Provider Unavail able Rebecca Fowler Unavailable [phone] Allergies Allergen (clinical drug ingredient) Drug/Non Drug [...] UROBILINOGEN Neg BILIRUBIN Neg BLOOD Trace Urinalysis, Complete-[id number] Reviewed date:09/29/2023 08:40:36 AM Interpretation: Performing Lab:[facility], [address] [place] [address], [place], Phone - [phone], Director - Anna Notes/Report: Specific [place] 1.018 1.005-1.030 pH 5.5 5.0-7.5 Urine-Color Yellow [...] Bacteria None seen None seen/Few Urine Culture, Routine-[id number] Reviewed date:09/29/2023 09:09:18 AM Interpretation: Performing Lab:[facility], [address] [place] [address], [place], Phone - [phone], Director - Anna Notes/Report: Urine Culture, Routine Final report Result 1 No growth PDF Report Reviewed date:09/29/2023 08:39:20 AM Interpretation: Performing Lab:[facility], [address] [place] [address], [place], Phone - [phone], Director - Anna Notes/Report: Reason For Referral No Information Medications Medication SIG (Take, Route, Frequency, Duration) Notes Start Date End Date Status Glucosamine 1500 Complex Active Vitamin D3 25 MCG (1000 UT) 1 tablet Ora lly Once a day for 30 day(s) Active Atorvastatin Calcium 40 MG 1 tablet Oral ly Once a day Active Citracal/Vitamin D 1200 mg 1 tablet Orally Daily Active Losartan Potassium 100 MG 1 tablet Orall y Once a day Active Hair Vitamins Active Janette-C 500-550 MG Orally A ctive One A Day Women 50 Plus Active Estradiol 0.1 MG/GM 1 GRAM VULVA Two lincoln es a Week for 90 days 11/11/2023 Active amLODIPine Besylate 2.5 MG 1 tablet Oral ly Once a day for 30 day(s) 11/07/2022 Active Collagen Active Clotrimazole-Betamethasone 1-0.05 % 1 application to affected area Externally Twice a day for 14 days 11/07/2022 Active Ubiquinol Active Meloxicam 7.5 MG 1 tablet Orally Once a day for 30 day(s) Active CoQ10 50 MG as directed Orally Active Chondroitin Sulfate Active Social History Tobacco Use: Social History [...] Problem Status W/U Status Risk Notes Problem Postmenopausal atrophic vaginitis (01207277) Postmenopausal atrophic vaginitis (N95.2) Active confirmed Problem Age-related osteoporosis (556528112) Age-related osteoporosis without current pathological fracture (M81.0) Active confirmed Problem Atrophy of vulva (416341271) Atrophy of vulva (N90.5) Active confirmed Problem Unspecified menopausal and perimenopausal disorder (N95.9) Active confirmed Problem Hyperlipidemia (93082539) Other and unspecified hyperlipidemia (272.4) Active confirmed Major Problem Benign essential hypertension (3815671) Essential hypertension, benign (401.1) Active confirmed Major Problem Menopausal symptom (77757940) Symptomatic menopausal or female climacteric states (627.2) Active confirmed Major Problem Osteoarthritis (858173591) Osteoarthrosis, unspecified whether generalized or localized, unspecified site (715.90) Active confirmed Major Problem Disorder of bone and articular cartilage (disorder) (363209101) Disorder of bone and cartilage, unspecified (733.90) Active confirmed Diag Problem Atypical glandular cells on cervical Papanicolaou smear (193926056) Abnormal glandular Papanicolaou smear of cervix (795.00) Active confirmed Diag Problem Gynecological examination normal (506932518781162) Routine gynecological examination (V72.31) Active confirmed Problem Screening for malignant neoplasm of colon (226786076) Special screening for malignant neoplasms, colon (V76.51) Active confirmed Major Vital Signs Temperature 97.8 degrees Fahrenheit 11/11/2023 Blood pressure diastolic 80 mm Hg 11/11/2023 Height 61.75 in 11/11/2023 Blood pressure systolic 134 mm Hg 11/11/2023 Weight 144 lbs 11/11/2023 BMI 26.55 kg/m2 11/11/2023 Encounters Encounter Location Date Provider Diagnosis [facility] [address] [place] [address] 09/26/2023 Rebecca Fowler Frequency of micturition R35.0 ; Unspecified abdominal pain R10.9 ; Abdominal distension (gaseous) R14.0 and Acute candidiasis of vulva and vagina B37.31 [facility] [address] [place] [address] 11/11/2023 Rebecca Fowler Encounter for screening mammogram for malignant neoplasm of breast Z12.31 ; Atrophy of vulva N90.5 ; Postmenopausal atrophic vaginitis N95.2 ; Age-related osteoporosis without current pathological fracture M81.0 ; Dense breasts, unspecified R92.30 and Encounter for gynecological examination (general) (routine) without abnormal findings Z01.419 [facility] [address] [place] [address] 11/19/2023 Rebecca Fowler Assessments Encounter Date Diagnosis (ICD Code) Assessment Notes Treatment Notes Treatment Clinical Notes Section Notes 09/26/2023 Frequency of micturition (ICD-10 - R35.0) OFFICIAL UA AND URINE C/S 11/11/2023 Encounter for screening mammogram for malignant neoplasm of breast (ICD-10 - Z12.31) REGULAR MAMMOGRAMS AND SBE'S WERE RECOMMENDED. 11/11/2023 Atrophy of vulva (ICD-10 - N90.5) DISCUSSED FINDINGS, DX AND TX OPTIONS. D/C LOTRISONE! PAT WAS ADVISED NOT TO APPLY THIS FOR LONG PERIODS OF TIME. SHE MISUNDERSTOOD MY INSTRUCTIONS. RX AND INSTRUCTIONS FOR ESTRADIOL CREAM WERE GIVEN. 09/26/2023 Unspecified abdominal pain (ICD-10 - R10.9) REASSURED PAT OF NORMAL MANAGER TERMINAL EXAM. ULTRASOUND OF THE ABDOMEN AND PELVIS WERE ORDERED. IF NORMAL AND PAINS CONTINUE, REFER TO PCP FOR POSSIBLE CT SCAN OF THE ABDOMEN. 09/26/2023 Abdominal distension (gaseous) (ICD-10 - R14.0) PELVIC AND ABDOMINAL SCANS WERE ORDERED. 11/11/2023 Postmenopausal atrophic vaginitis (ICD-10 - N95.2) DISCUSSED VAGINAL ATROPHY. ADVISED PAT TO APPLY ESTRADIOL CREAM INTRAVAGINALL TWICE WEEKLY. 11/11/2023 Age-related osteoporosis without current pathological fracture (ICD-10 - M81.0) DISCUSSED OSTEOPOROSIS AND ITS IMPACT ON HER HEALTH. ADEQUATE CALCIUM AND VIT D. WEIGHT BEARING EXERCISES, OSTEO PRECAUTIONS. REPEAT BMD THIS YEAR. 09/26/2023 Acute candidiasis of vulva and vagina (ICD-10 - B37.31) DISCUSSED FINDINGS AND PROBABLE VULVAR YEAST. CONTINUE APPLYING LOTRISONE CREAM THAT HAD PREVIOUSLY BEEN PRESCRIBED. LOOSE [place]ITE [place] UNDERWEAR. 11/11/2023 Dense breasts, unspecified (ICD-10 - R92.30) DISCUSSED DENSE BREASTS ON MAMMOGRAM AND ITS IMPLICATIONS. 3D MAMMOGRAMS WERE RECOMMENDED. 11/11/2023 Encounter for gynecological examination (general) (routine) without abnormal findings (ICD-10 - Z01.419) NO MORE PAP TESTS. Plan Of Treatment Pending Test Test Name Order Date Ultrasound : Abdomen 09/26/2023 MAMMOGRAM, SCREENING 11/07/2022 MAMMOGRAM, SCREENING 11/11/2023 MAMMOGRAM, SCREENING 10/11/2015 MAMMOGRAM, SCREENING 09/28/2014 MAMMOGRAM, SCREENING 11/01/2020 MAMMOGRAM, SCREENING 11/06/2021 BONE DENSITY 11/01/2020 BONE DENSITY 11/07/2022 BONE DENSITY 11/11/2023 BONE DENSITY 11/24/2020 MM Digital Mammo Screening 11/11/2023 MM Digital Mammo Screening 11/07/2022 MM Digital Mammo Screening 11/06/2021 MM Digital Mammo Screening 11/01/2020 Next Appt Details Provider Name:Rebecca Pennington kiel, 11/11/2024 09:40:00 AM, [address] [facility], [address], [place], [address], Insurance Providers Payer Name Payer Address Payer Phone Subscriber Number Group Number Insured Name Patient Relationship to Insured Coverage Start Date Coverage End Date [employer] MEDICARE PPO [address] [place] [address] [id number] CRISELDA ANNE Self - patient is the insured Medical (General) History Medical History History ICD Code Unspecified abnormal cytological finding s in specimens from cervix uteri R87.619 Disorder of bone density and structure, unspecified M85.9 Hyperlipidemia, unspecified E78.5 Essential (primary) hypertension I10 Menopausal and female climacteric states N95.1 Postmenopausal atrophic vaginitis N95.2 Age-related osteoporosis without current pathological fracture M81.0 Inconclusive mammogram R92.2 Mammographic heterogeneous density, bila teral breasts R92.333 Surgical History Surgery Date(Month/Year) Appendectomy D&C Tonsillectomy Colonoscopy Hospitalization History Reason Date(Month/Year) See Surgical Hx 2 Vaginal Deliveries
[2024-04-26 10:16] VITALS: BP 178/63; PULSE 81; RESP 16; TEMP 36.3; O2SAT 97
[2024-04-26] MEDS: Tetracaine HCl/PF 0.5% Oph Sol 4 ML DROPS 1 DROP EYE-RIGHT (10:21)
[2024-04-26] MEDS: Cyclopentolate 1 % Ophth Sol 2 ML DRPBTL 1 DROP EYE-RIGHT ×3 (10:22→10:38)
[2024-04-26] MEDS: Tropicamide 1 % Ophth Sol 3 ML BTL 1 DROP EYE-RIGHT ×3 (10:24→10:40)
[2024-04-26] MEDS: Ketorolac Tromethamine 0.5% Op 5 ML DROPS 1 DROP EYE-RIGHT ×3 (10:26→10:42)
[2024-04-26] MEDS: Phenylephrine HCL 2.5% Oph SoL 2 ML BOTTLE 1 DROP EYE-RIGHT ×3 (10:28→10:44)
[2024-04-26] MEDS: Lactated Ringers 500 ML 50 ML IV (10:36)
[2024-04-26 10:44] VITALS: BMI 26.0
--- NOTE | 2024-04-26 11:02 | P.PCNO_ITS ---
Ophthalmology Procedure Procedure Date of Service: 04/26/24 Ophthalmology Viscoelastic: Healon Duet Dual Pack Pro Ophthalmology Lenses: IOL Acrysof MP - [id number] (21) Procedure Notes: PREOPERATIVE DIAGNOSIS: Decreased visual acuity right eye secondary to cataract POSTOPERATIVE DIAGNOSIS: Same PROCEDURE: Right cataract extraction with intraocular lens insertion SURGEON: Candido Suarez M.D. ANESTHESIA: Topical/MAC ESTIMATED BLOOD LOSS: None COMPLICATIONS: None After obtaining informed consent, the patient was brought to the operating room suite and placed in the supine position. After adequate sedation per anesthesia, topical drops of Tetracaine were given to the right eye. The eye was then prepped and draped in the usual sterile fashion. The operating room microscope was then positioned over the operative eye and a lid speculum placed. A paracentesis was created. Viscoelastic was then instilled into the anterior chamber. A three plane incision was then created temporally, utilizing a 2.85 mm keratome. Capsulotomy forceps were then utilized to create a circular tear capsulotomy. Hydrodissection and hydrodelineation were carried out until adequate mobilization of the nucleus occurred. Phacoemulsification was then utilized to remove the dense central nucl eus followed by removal of the cortical material utilizing the automated aspiration irrigation unit. Viscoelastic was instilled into the posterior capsular bag followed by placement of a posterior chamber intraocular lens without difficulty. The residual Viscoelastic was then removed utilizing the automated IA machine. The wound was checked and found to be watertight. The patient tolerated the procedure well and the lid speculum was removed. Intracameral injection of Vigamox 0.1 mL followed by a subtenon injection of Kenalog-40 0.2 mL were administered. The patient will be seen in the a.m.
--- NOTE | 2024-04-26 11:02 | MHC.SHP ---
Pre-Procedural Eval Section A - 24 Hr Update-Section A only Date of Service: 04/26/24 The patient is an INPATIENT: No Changes since office visit: No Cold of Flu in the past 2 weeks, No New Medical Problems, No Changes in Medication and No Patient answered all questions The patient has been examined within 24 hours of the surgical procedure. The History & Physical has been completed within 30 days and I have reviewed it.: Yes Section B - Complete if H&P > 30 days Chief Complaint: Age-related nuclear cataract, right eye Allergies: Allergies Allergy/AdvReac Type Severity Reaction Status Date / Time ciprofloxacin Allergy Severe Anaphylaxis Verified 04/26/24 10:12 levofloxacin Allergy Severe Anaphylaxis Verified 04/26/24 10:12 Plan Diagnosis/Plan: Unchanged I have reviewed the history and physical and performed a pertinent physical examination on my patient. No changes have occurred unless specified. Time Spent With Patient Time: Total time managing care of this patient today ____ minutes.
[2024-04-26 11:25] VITALS: BP 142/61; PULSE 77; RESP 16; TEMP 36.6; O2SAT 99
== END 2024-04-26 11:36 | disposition home or self-care (01) ==
PROVIDERS: PCP Internal Medicine; Visit Provider Ophthalmology
PROC: (CPT 66985; principal; 2024-04-26 12:00)
DX: H25.11 Age-related nuclear cataract, right eye (principal); H52.4 Presbyopia; H43.393 Other vitreous opacities, bilateral; H18.413 Arcus senilis, bilateral; I10 Essential (primary) hypertension; E78.2 Mixed hyperlipidemia; R73.03 Prediabetes; H91.90 Unspecified hearing loss, unspecified ear; Z79.899 Other long term (current) drug therapy; Z88.1 Allergy status to other antibiotic agents
CPT/HCPCS: 66984; J2250; J3301; V2630

== ENCOUNTER 2024-05-10 08:34 | Day surgery (SDC) | payer MEDICARE, SELFPAY ==
--- OUTSIDE RECORDS SUMMARY | 2024-03-02 06:58 | XMS_ITS ---
Author Name [facility] Organization Unknown History of Medication Use Medication Directions Dispensed Refills Start Date End Date [facility] Bioflavonoid Products (NORM C PO) Take 500 mg by mouth daily. 11/14/2023 active atorvastatin (LIPITOR) tablet 40 mg Take 1 tablet (40 mg total) by mouth daily. 11/14/2023 active Glucosamine-Chondroitin 3681-1046 MG/30ML LIQD Take by mouth daily. 2 tab 11/14/2023 active clotrimazole-betamethas one (LOTRISONE) cream 11/14/2023 act terrie meloxicam (MOBIC) 7.5 MG tablet Take 1 tablet (7.5 mg total) by mouth daily as needed. 11/14/2023 active Fnzrvpf-Eegjyblqbc-Fjxz min D (CITRACAL +D3 PO) Take by mouth daily. 11/14/2023 active amLODIPine (NORVASC) tablet 2.5 mg Take 1 tablet (2.5 mg total) by mouth daily. 11/14/2023 active Ubiquinol 50 MG CAPS Take by mouth daily. 11/14/2023 active losartan (COZAAR) 100 MG tablet Take 1 tablet (100 mg total) by mouth daily. 11/14/2023 active clotrimazole-betamethas one (LOTRISONE) cream 01/30/2023 act terrie Ubiquinol 50 MG CAPS Take by mouth daily. 01/30/2023 active atorvastatin (LIPITOR) tablet 40 mg Take 1 tablet (40 mg total) by mouth daily. 01/30/2023 active losartan (COZAAR) 100 MG tablet Take 1 tablet (100 mg total) by mouth daily. 01/30/2023 active Cholecalciferol (VITAMIN D3 PO) Take by mouth daily. 01/30/2023 active Bioflavonoid Products (NORM C PO) Take 500 mg by mouth daily. 01/30/2023 active amLODIPine (NORVASC) tablet 2.5 mg Take 1 tablet (2.5 mg total) by mouth daily. 01/30/2023 active meloxicam (MOBIC) 7.5 MG tablet Take 1 tablet (7.5 mg total) by mouth daily. 01/30/2023 active Glucosamine-Chondroitin 9529-4975 MG/30ML LIQD Take by mouth daily. 2 tab 01/30/2023 active Problems Problem Status Onset Date Problem Type Date of Resoluti on Source White coat syndrome with diagnosis of hypertension active 2023-01-[address] [facility] Mixed hyperlipidemia active 2023-01-28 ProblemAct [facility] Primary osteoarthritis of both feet active 2023-01-28 ProblemAct [facility] Primary osteoarthritis of left knee active 2023-01-28 ProblemAct [facility]
[2024-04-20 08:10] VITALS: BMI 25.9
--- NOTE | 2024-05-10 08:35 | HO.ANESPROP2 ---
HPI - Anesthesia Eval Consult details Narrative: for cataract extraction [facility] Past Medical History Medical History HTN (hypertension) Hearing loss Cataract Arthritis Family History Family history of problems with anesthesia: No Surgical History Surgical History History of parotidectomy Hx of tonsillectomy Hx of appendectomy History of Problems with Anesthesia: No Social History Social History Are you a primary career development associate to a significant other at home: No Patient Tobacco Use Status: Never used Tobacco Use of substances other than those prescribed or required for medical reasons: No Advance Directives: No Advance Directives Information Provided: No Advance Directives on File: No Recently lost weight without trying: No Nutrition Risks: No Nutritional Risk Patient : No : No Meds Allergies Allergy/AdvReac Type Severity Reaction Status Date / Time ciprofloxacin Allergy Severe Anaphylaxis Verified 04/26/24 10:12 levofloxacin Allergy Severe Anaphylaxis Verified 04/26/24 10:12 Home Medications ?Medication ?Instructions ?Recorded ?Confirmed ?Last Taken ?Type amlodipine 2.5 mg tablet 2.5 mg PO DAILY 04/20/24 04/20/24 04/26/24 History ascorbate calcium-bioflavonoid 1 tab PO DAILY 04/20/24 04/20/24 Unknown History 1,000 mg-200 mg tablet (Janette-C with Bioflavonoids) atorvastatin 40 mg tablet 40 mg PO DAILY 04/20/24 04/20/24 04/26/24 History cholecalciferol (vitamin D3) 250 250 mcg PO DAILY 04/20/24 04/20/24 Unknown History mcg (10,000 unit) tablet clotrimazole-betamethasone 1 1 appl topical DAILY 04/20/24 04/20/24 Unknown History %-0.05 % topical cream coQ10 (ubiquinol) 100 mg capsule 100 mg PO DAILY 04/20/24 04/20/24 Unknown History (CoQmax Ubiquinol) collagen (bovine) 100 % topical ea topical 04/20/24 Unknown History powder in packet estradiol 0.01% (0.1 mg/gram) vaginal 04/20/24 Unknown History vaginal cream glucosamine HCl 1,000 1 tab PO DAILY 04/20/24 04/20/24 Unknown History mg-hyaluronic acid 1.65 mg tablet losartan 100 mg tablet 100 mg PO DAILY 04/20/24 04/26/24 04/25/24 History meloxicam 7.5 mg tablet 7.5 mg PO DAILY 04/20/24 04/20/24 Unknown History rxtspegs-ovn-dymsc ac 400 1 tab PO DAILY 04/20/24 04/20/24 Unknown History mcg-calcium carb 500 mg-vit K1 20 mcg tablet (Women's 50 Plus Daily Formula) vitamin D3 1,250 mcg (50,000 1 cap PO DAILY 04/20/24 04/20/24 Unknown History unit)-vitamin K2 200 mcg capsule Exam Height,Weight and Vital Signs: Height 5 ft 3 in Weight 66.224 kg Airway Mallampati Class: II TM Dist: >3cm Neck ROM: Full Heart: rrr Lungs: cta Assessment and Plan Assessment Anesthesia Assessment: Anesthesia Plan Discussed Final Anesthetic Review Family History of Problems with Anesthesia: No History of Problems with Anesthesia: No ASA Class: II Final Preanesthetic Review: No Changes in Pt Med Stat, Meds/Allgs Chart Reviewed, Consent Obtained/Reviewed and Anes Risks/Benef Reviewed Patient Risk: Low Procedure Risk: Low Anesthetic Plan Anesthetic Plan: MAC: Disposition: Standard PACU
[2024-05-10 09:36] VITALS: BP 179/76; PULSE 75; RESP 16; TEMP 36.8; O2SAT 97; BMI 25.7
[2024-05-10] MEDS: Tetracaine HCl/PF 0.5% Oph Sol 4 ML DROPS 1 DROP EYE-LEFT (09:42)
[2024-05-10] MEDS: Cyclopentolate 1 % Ophth Sol 2 ML DRPBTL 1 DROP EYE-LEFT ×3 (09:44→10:03)
[2024-05-10] MEDS: Tropicamide 1 % Ophth Sol 3 ML BTL 1 DROP EYE-LEFT ×3 (09:45→10:06)
[2024-05-10] MEDS: Ketorolac Tromethamine 0.5% Op 5 ML DROPS 1 DROP EYE-LEFT ×3 (09:46→10:08)
[2024-05-10] MEDS: Phenylephrine HCL 2.5% Oph SoL 2 ML BOTTLE 1 DROP EYE-LEFT ×3 (09:48→10:09)
[2024-05-10] MEDS: Lactated Ringers 500 ML 100 ML IVCONT (10:02)
--- NOTE | 2024-05-10 10:28 | MHC.SHP ---
Pre-Procedural Eval Section A - 24 Hr Update-Section A only Date of Service: 05/10/24 The patient is an INPATIENT: No Changes since office visit: No Cold of Flu in the past 2 weeks, No New Medical Problems, No Changes in Medication and No Patient answered all questions The patient has been examined within 24 hours of the surgical procedure. The History & Physical has been completed within 30 days and I have reviewed it.: Yes Section B - Complete if H&P > 30 days Chief Complaint: Age-related nuclear cataract, left eye Allergies: Allergies Allergy/AdvReac Type Severity Reaction Status Date / Time ciprofloxacin Allergy Severe Anaphylaxis Verified 05/10/24 09:34 levofloxacin Allergy Severe Anaphylaxis Verified 05/10/24 09:34 Plan Diagnosis/Plan: Unchanged I have reviewed the history and physical and performed a pertinent physical examination on my patient. No changes have occurred unless specified. Time Spent With Patient Time: Total time managing care of this patient today ____ minutes.
--- NOTE | 2024-05-10 10:29 | HO.PNOPHT ---
Ophthalmology Procedure Procedure Date of Service: 05/10/24 Ophthalmology Viscoelastic: Healon Duet Dual Pack Pro Ophthalmology Lenses: IOL Acrysof MP - [id number] (20.5) Procedure Notes: PREOPERATIVE DIAGNOSIS: Decreased visual acuity left eye secondary to cataract POSTOPERATIVE DIAGNOSIS: Same PROCEDURE: Left cataract extraction with intraocular lens insertion SURGEON: Candido Suarez M.D. ANESTHESIA: Topical/MAC ESTIMATED BLOOD LOSS: None COMPLICATIONS: None After obtaining informed consent, the patient was brought to the operation room suite and placed in the supine position. After adequate sedation per anesthesia, topical drops of Tetracaine were given to the left eye. The eye was then prepped and draped in the usual sterile fashion. The operating room microscope was then positioned over the operative eye and a lid speculum placed. A paracentesis was created. Viscoelastic was then instilled into the anterior chamber. A three plane incision was then created temporally, utilizing a 2.85 mm keratome. Capsulotomy forceps were then utilized to create a circular tear capsulotomy. Hydrodissection and hydrodelineation were carried out until adequate mobilization of the nucleus occurred. Phacoemulsification was then utilized to remove the dense central nucleus followed by removal of the cortical material utilizing the automated aspiration irrigation unit. Viscoat elastic was instilled into the posterior capsular bag followed by placement of a posterior chamber intraocular lens without difficulty. The residual Viscoat elastic was then removed utilizing the automated IA machine. The wound was check and found to be watertight. The patient tolerated the procedure well and the lid speculum was removed. Intracameral injection of Vigamox 0.1 mL followed by a subtenon injection of Kenalog-40 0.2 mL were administered. The patient will be seen in the a.m.
[2024-05-10 10:54] VITALS: BP 160/67; PULSE 76; RESP 17; TEMP 36.6; O2SAT 17
== END 2024-05-10 11:12 | disposition home or self-care (01) ==
PROVIDERS: PCP Internal Medicine; Visit Provider Ophthalmology
PROC: (CPT 66985; principal; 2024-05-10 11:00)
DX: H25.12 Age-related nuclear cataract, left eye (principal); H52.4 Presbyopia; H18.413 Arcus senilis, bilateral; H43.393 Other vitreous opacities, bilateral; I10 Essential (primary) hypertension; E78.2 Mixed hyperlipidemia; H91.90 Unspecified hearing loss, unspecified ear; Z79.899 Other long term (current) drug therapy; Z88.1 Allergy status to other antibiotic agents
CPT/HCPCS: 66984; J2250; J3301; V2630